=== PATIENT | male | born 1955 | race African-American/Black ===

== ENCOUNTER 2018-02-15 15:34 | Emergency (ER) | payer MEDICAID ==
[~2018-02-15] VITALS: Ht 185.4 cm; Wt 57.3 kg
[~2018-02-15 15:34] MED LIST: DOCU-138 PO; GABA-531 PO; PHEN100T PO
[2018-02-15 20:29] VITALS: BP 127/73
== END 2018-02-15 21:00 | disposition home or self-care (01) ==
LOC: ER 20:57
DX: M25.511 Pain in right shoulder (principal); G40.909 Epilepsy, unspecified, not intractable, without status epilepticus; F12.10 Cannabis abuse, uncomplicated; R03.0 Elevated blood-pressure reading, without diagnosis of hypertension; Z87.828 Personal history of other (healed) physical injury and trauma; Z88.8 Allergy status to other drugs, medicaments and biological substances
CPT/HCPCS: 73030; 99284

== ENCOUNTER 2018-04-02 10:09 | Emergency (ER) | payer MEDICAID ==
[~2018-04-02] VITALS: Ht 170.2 cm; Wt 61.3 kg
[2018-04-02] MEDS ORDERED: IBUPROFEN 600MG TABLET PO ONE (12:30)
[2018-04-02 13:42] VITALS: BP 147/69
== END 2018-04-02 13:51 | disposition home or self-care (01) ==
LOC: ER 12:59
DX: M25.511 Pain in right shoulder (principal); Z98.890 Other specified postprocedural states; Z88.8 Allergy status to other drugs, medicaments and biological substances
CPT/HCPCS: 73030; 99284

== ENCOUNTER 2021-09-07 12:12 | Emergency (ER) | payer MEDICAID, OTHER ==
[~2021-09-07] VITALS: Ht 172.7 cm; Wt 70.0 kg
[~2021-09-07 12:12] MED LIST changes: -GABA-531 PO; +GABA-532 PO
[2021-09-07] MEDS ORDERED: LEVETIRACETAM 500MG PREMIX 100 ML IV ONE (12:30)
[2021-09-07] MEDS ORDERED: KEPP500 MT (12:42)
[2021-09-07] MEDS ORDERED: PHEN100T PO (12:42)
[2021-09-07 12:52] LABS: HEMATOCRIT. 38.2 % (42.0-52.0); HEMOGLOBIN. 12.7 g/dL (14.0-18.0); MEAN CORPUSCULAR HEMOGLOBIN 33.2 pg (28.0-32.0); MEAN CORPUSCULAR VOLUME 99.7 fL (80.0-94.0); PLATELET 234 x1000/uL (130-400); RED BLOOD CELL COUNT 3.83 mill/uL (4.7-6.1); RED CELL DISTRIBUTION WIDTH 14.3 % (11.6-14.6)
[2021-09-07 13:00] LABS: CHLORIDE 106 mEq/L (98-107)
[2021-09-07 14:03] LABS: PHENOBARBITAL 41.9 ug/mL (15.0-40.0)
[2021-09-07 14:34] LABS: BASOPHILS % 0.8 % (0.0-2.0); EOSINOPHILS % 1.7 % (0.0-5.0); LYMPHOCYTES % 22.2 % (20.0-50.0); MONOCYTES % 9.5 % (2.0-8.0); NEUTROPHILS % 65.8 % (40.0-76.0)
[2021-09-07 14:53] VITALS: BP 140/74
== END 2021-09-07 15:09 | disposition home or self-care (01) ==
LOC: ER 12:12
DX: G40.909 Epilepsy, unspecified, not intractable, without status epilepticus (principal); R03.0 Elevated blood-pressure reading, without diagnosis of hypertension; Z79.899 Other long term (current) drug therapy
CPT/HCPCS: 36415; 80053; 80184; 85025; 96365; 99284; J1953

== ENCOUNTER 2021-10-17 07:32 | Emergency (ER) | payer OTHER ==
[~2021-10-17] VITALS: Ht 172.7 cm; Wt 63.0 kg
[~2021-10-17 07:32] MED LIST changes: +KEPP500 MT
[2021-10-17] MEDS ORDERED: LORAZEPAM 2MG/ML CPJ IV STA (07:48)
[2021-10-17] MEDS ORDERED: SODIUM CHLORIDE 0.9% 1,000 ML IV ONE (08:00)
[2021-10-17 08:26] LABS: BASOPHILS % 0.6 % (0.0-2.0); HEMOGLOBIN. 10.9 g/dL (14.0-18.0); LYMPHOCYTES % 12.7 % (20.0-50.0); MEAN CORPUSCULAR HEMOGLOBIN 33.2 pg (28.0-32.0); MEAN CORPUSCULAR VOLUME 100.2 fL (80.0-94.0); MEAN PLATELET VOLUME 7.7 fl (7.4-10.4); MONOCYTES % 11.9 % (2.0-8.0); NEUTROPHILS % 74.8 % (40.0-76.0); PLATELET 226 x1000/uL (130-400); RED CELL DISTRIBUTION WIDTH 13.7 % (11.6-14.6)
[2021-10-17 08:27] LABS: CHLORIDE 107 mEq/L (98-107)
[2021-10-17 08:34] LABS: ETHANOL BLOOD < 10 mg/dL
[2021-10-17] MEDS: RISPERIDONE 0.5MG TABLET PO SCH ×2 (12:44→21:00)
[2021-10-17 13:58] LABS: CLARITY URINE CLEAR (CLEAR); COLOR URINE YELLOW (YELLOW); KETONES URINE 3+ (NEGATIVE); LEUKOCYTE ESTERASE URINE TRACE (NEGATIVE); NITRITE URINE NEGATIVE (NEGATIVE); OCCULT BLOOD URINE 1+ (NEGATIVE); PH URINE 5.5 (4.5-8.0); PROTEIN URINE 1+ (NEGATIVE); SPECIFIC GRAVITY URINE 1.018 (1.005-1.030); UROBILINOGEN URINE 0.2 E.U./dL (0.2-1.0)
[2021-10-17 14:54] LABS: *AMPHETAMINES SCREEN URINE NEGATIVE (NEGATIVE); *BARBITURATES SCREEN URINE PRESUMTIVE POSITIVE (NEGATIVE); *BENZODIAZEPINES SCREEN URINE NEGATIVE (NEGATIVE); *COCAINE SCREEN URINE NEGATIVE (NEGATIVE); CANNABINOID URINE SCREEN PRESUMTIVE POSITIVE (NEGATIVE); METHADONE URINE SCREEN NEGATIVE (NEGATIVE); OPIATES URINE SCREEN NEGATIVE (NEGATIVE); PHENCYCLIDINE URINE SCREEN NEGATIVE (NEGATIVE)
[2021-10-18] MEDS: LEVETIRACETAM 500MG TABLET PO SCH ×2 (08:42→21:00)
[2021-10-18] MEDS: RISPERIDONE 0.5MG TABLET PO SCH ×2 (08:42→21:00)
[2021-10-19 09:30] VITALS: BP 135/78
[2021-10-19] MEDS: RISPERIDONE 0.5MG TABLET PO SCH (09:35)
[2021-10-19] MEDS: LEVETIRACETAM 500MG TABLET PO SCH (09:35)
== END 2021-10-19 09:40 | disposition home or self-care (01) ==
LOC: EDBD 07:32 → ER 07:32
DX: F23 Brief psychotic disorder (principal); G40.909 Epilepsy, unspecified, not intractable, without status epilepticus; N28.9 Disorder of kidney and ureter, unspecified; D50.9 Iron deficiency anemia, unspecified; Z73.6 Limitation of activities due to disability; Z20.822 Contact with and (suspected) exposure to COVID-19; F12.90 Cannabis use, unspecified, uncomplicated; Z79.899 Other long term (current) drug therapy
CPT/HCPCS: 36415; 70450; 80053; 80305; 80320; 81003; 85025; 93005; 96361; 96374; 99285; C9803; J2060; J7030; U0003; U0005; G0480

== ENCOUNTER 2025-01-18 21:43 | Emergency (ER) | payer MEDICARE, MEDICAID ==
[~2025-01-18] VITALS: Ht 170.2 cm; Wt 59.0 kg
[~2025-01-18 21:43] MED LIST changes: +GABA-1180 PO; -GABA-532 PO
[2025-01-18 22:02] VITALS: O2SAT 97
[2025-01-19 00:22] LABS: BASOPHILS % 1.0 % (0.0-2.0); EOSINOPHILS % 1.8 % (0.0-5.0); HEMATOCRIT. 32.6 % (42.0-52.0); HEMOGLOBIN. 11.0 g/dL (14.0-18.0); LYMPHOCYTES % 42.4 % (20.0-50.0); MEAN PLATELET VOLUME 7.9 fl (7.4-10.4); MONOCYTES % 12.0 % (2.0-8.0); NEUTROPHILS % 42.8 % (40.0-76.0); PLATELET 242 x1000/uL (130-400); RED BLOOD CELL COUNT 3.21 mill/uL (4.7-6.1); RED CELL DISTRIBUTION WIDTH 14.4 % (11.6-14.6)
[2025-01-19 00:34] LABS: CREATININE 0.9 mg/dL (0.6-1.3); UREA NITROGEN BLOOD 13 mg/dL (9-23)
[2025-01-19 01:35] VITALS: BP 148/58; PULSE 80; RESP 16; TEMP 36.7; O2SAT 98
== END 2025-01-19 01:38 | disposition home or self-care (01) ==
LOC: ER 21:43
DX: R60.0 Localized edema (principal); R06.02 Shortness of breath; Z79.899 Other long term (current) drug therapy
CPT/HCPCS: 36415; 71045; 80048; 83880; 85025; 93970; 99284